=== PATIENT | male | born 1985 | race Two or more races ===

== ENCOUNTER 2020-07-03 11:19 | Emergency (ER) | payer MEDICAID ==
[~2020-07-03] VITALS: Ht 170.2 cm; Wt 74.8 kg
[2020-07-03 11:19] VITALS: BP 129/74
[2020-07-03] MEDS ORDERED: Lidocaine 1% Plain 30 ml INJ ONE ×2 (11:35→11:45)
--- NOTE | 2020-07-03 11:56 | Emergency Room Report ---
History of Present Illness General Chief Complaint: Upper Extremity Injury Source: Patient Present Illness HPI Disclaimer: Please note that this report is being documented using [employer] technology. This can lead to erroneous entry secondary to incorrect interpretation by the dictating instrument. HPI: 34-year-old male no past medical history presents with injury to the right hand. He was working when a large object fell on his right hand. Causing a laceration over the base of the thumb. Reports pain but full range of motion, sensation intact throughout the hand. Presented by EMS. 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 Patient History Reviewed Nursing Documentation: PMH: Agreed; PSxH: Agreed Nursing Documentation-PMH Past Medical History: No Stated History Review of Systems All Other Systems: negative except mentioned in HPI Physical Exam Vital Signs Date Time Temp Pulse Resp B/P (MAP) Pulse Ox O2 Delivery O2 Flow Rate FiO2 07/03/20 11:14 98.8 77 18 129/74 (92) 98 Room Air Sp02 EP Interpretation: reviewed, normal General Appearance: well appearing, no apparent distress Head: normocephalic, atraumatic Eyes: bilateral eye PERRL, bilateral eye EOMI ENT: hearing grossly normal, moist mucus membranes Neck: full range of motion, supple Respiratory: lungs clear, normal breath sounds, no rhonchi, no respiratory distress, no retraction, no wheezing Cardiovascular #1: normal peripheral pulses, regular rate, rhythm, no murmur Gastrointestinal: non tender, soft, non-distended, no guarding Musculoskeletal: other - And mildly tender to palpation, full range of motion sensation intact throughout 2 cm laceration noted on the dorsal aspect the base of the thumb. Neurologic: alert, oriented x3, no focal defects Skin: normal color, warm/dry Procedures Laceration/Wound Repair Laceration/Wound Repair : Consent: Verbal Wound Location: upper extremity Wound's Depth, Shape: superficial Wound Explored: no foreign body removed Irrigated w/ Saline (ccs): 200 Anesthesia: 1% Lidocaine Wound Debrided: None Suture Size/Type: 4:0 Sterile Dressing Applied?: Yes Splint Applied?: Yes Patient Tolerated: Well Complications: None Medical Decision Making Diagnostic Impression: Primary Impression: Contusion of right hand Additional Impression: Laceration of right hand ER Course MDM: Differential diagnosis included but not limited to contusion, laceration, less likely fracture or dislocation. Clinical course-laceration was repaired by me. X-ray completed I did not visualize any acute fracture or dislocation. Patient placed in a splint. Dressing applied. Discharged with prophylactic antibiotic, wound care instructions and return in 1 week for suture removal. Patient currently does not have a PCP, he was provided [facility] referrals. Strict return precautions given Other X-Ray Diagnostic Results Other X-Ray Diagnostic Results : # of Views/Limited Vs Complete: 3 View Indication: Pain EP Interpretation: Yes Interpretation: no dislocation, no fractures Impression: No acute disease Electronically Signed by: Isaiah Pond MD Last Vital Signs Date Time Temp Pulse Resp B/P (MAP) Pulse Ox O2 Delivery O2 Flow Rate FiO2 07/03/20 11:19 98.8 77 18 129/74 98 Room Air Status: improved Disposition: HOME, SELF-CARE Condition: Stable Scripts Ibuprofen* (MOTRIN*) 600 Mg Tablet 600 MG ORAL Q6H PRN for For Pain, #30 TAB 0 Refills Prov: Isaiah Pond M.D. 07/03/20 Cephalexin* (KEFLEX*) 500 Mg Tablet 500 MG ORAL EVERY 8 HOURS, #20 CAP Prov: Isaiah Pond M.D. 07/03/20 Bacitracin (BACITRACIN*) 1 Each Packet 1 PACKET TOPIC BID, #30 PACKET 0 Refills Prov: Isaiah Pond M.D. 07/03/20 Isaiah Pond M.D. Jul 03, 2020 11:56
[2020-07-03] MEDS ORDERED: IBUPROFEN600 M1 ORAL (12:13)
[2020-07-03] MEDS ORDERED: BACITRACIN1 EACH TOPIC (12:13)
[2020-07-03] MEDS ORDERED: CEPHALEXIN500 M1 ORAL (12:13)
[2020-07-03] MEDS ORDERED: Bacitracin Oint UD TOPIC ONE (12:15)
[2020-07-03 12:19] VITALS: BP 125/72
--- NOTE | 2020-07-03 17:17 | Diagnostic Imaging Report ---
Indication: Right hand pain Technique: 3 views right hand Comparison: none Findings: No acute fractures. No dislocations. Joint spaces are preserved. Impression: Negative This agrees with the preliminary interpretation provided by the emergency room physician
== END 2020-07-03 12:19 | disposition home or self-care (01) ==
LOC: EDBD 11:19 → EMR 11:30
DX: S61.411A Laceration without foreign body of right hand, initial encounter (principal); W22.8XXA Striking against or struck by other objects, initial encounter; Y92.9 Unspecified place or not applicable
CPT/HCPCS: 12001; 73130; J2001; Z7502; 99283

== ENCOUNTER 2020-07-11 14:47 | Emergency (ER) | payer MEDICAID ==
[~2020-07-11] VITALS: Ht 177.8 cm; Wt 87.1 kg
[~2020-07-11 14:47] MED LIST: BACITRACIN1 EACH TOPIC; CEPHALEXIN500 M1 ORAL; IBUPROFEN600 M1 ORAL
[2020-07-11 14:59] VITALS: BP 129/88
--- NOTE | 2020-07-11 15:06 | Emergency Room Report ---
History of Present Illness General Chief Complaint: Wound Recheck/Suture Removal Source: Patient Present Illness HPI 34-year-old male with no no signal past medical history here requesting suture removal that was placed in [facility] 8 days ago on right hand hyperthenar area. Patient is wearing a Velcro splint on since. Has range of motion at the site, denies any tingling and numbness. Is neurovascularly intact and has full strength. 5 sutures are placed in and that the wound appears to be healed without any complication. Denies any new injury. Has finished taking antibiotics. Has an antibiotic ointment at home. Allergies: Coded Allergies: No Known Allergies (Unverified , 07/03/20) COVID-19 Screening Contact w/high risk pt: No Experienced COVID-19 symptoms?: No COVID-19 Testing performed RAIL BONDER: No Patient History Past Medical History: see triage record Past Surgical History: none Pertinent Family History: none Immunizations: UTD Reviewed Nursing Documentation: PMH: Agreed; PSxH: Agreed Nursing Documentation-PMH Past Medical History: No Stated History Review of Systems All Other Systems: negative except mentioned in HPI Physical Exam Vital Signs Date Time Temp Pulse Resp B/P (MAP) Pulse Ox O2 Delivery O2 Flow Rate FiO2 07/11/20 14:50 98.4 76 16 129/88 (102) 99 Room Air Sp02 EP Interpretation: reviewed, normal General Appearance: normal inspection, well appearing Head: normocephalic, atraumatic Eyes: bilateral eye normal inspection, bilateral eye PERRL ENT: hearing grossly normal, normal pharynx, no angioedema, normal voice Neck: full range of motion, supple/symm/no masses Respiratory: chest non-tender, lungs clear, normal breath sounds, no rhonchi, no wheezing, speaking full sentences Cardiovascular #1: regular rate, rhythm, no edema, no murmur Cardiovascular #2: 2+ radial (R), 2+ radial (L) Gastrointestinal: soft Rectal: deferred Genitourinary: no CVA tenderness Musculoskeletal: back normal Neurologic: alert, motor strength/tone normal, oriented x3, sensory intact, responsive, speech normal Psychiatric: judgement/insight normal, memory normal, mood/affect normal, no suicidal/homicidal ideation Skin: no rash, other - Sutures intact right thenar Lymphatic: no adenopathy Procedures Additional Procedure Procedure Narrative right thenar 6 sutures removed, w/o complications Medical Decision Making PA Attestation All my diagnosis and treatment plans were reviewed ad discussed with my supervising physician Dr. Garcia Diagnostic Impression: Primary Impression: Encounter for removal of sutures ER Course 34-year-old male with no no signal past medical history here requesting suture removal that was placed in [place] [facility] 8 days ago on right hand hyperthenar area. Patient is wearing a Velcro splint on since. Has range of motion at the site, denies any tingling and numbness. Is neurovascularly intact and has full strength. 5 sutures are placed in and that the wound appears to be healed without any complication. Denies any new injury. Has finished taking antibiotics. Has an antibiotic ointment at home. Ddx considered but are not limited to : Superficial laceration, deep laceration, tendon involvement with laceration, laceration with foreign body Vital signs: are WNL, pt. is afebrile H&PE are most consistent with: Suture removal ORDERS: None ED INTERVENTIONS: Sutures were removed without complication, DISCHARGE: At this time pt. is stable for d/c to home. Will provide printed patient care instructions, and any necessary prescriptions. Care plan and follow up instructions have been discussed with the patient prior to discharge. Patient to follow-up with primary doctor, keep applying antibiotic ointment, Steri-Strips were applied, worsening symptoms return to the emergency room Last Vital Signs Date Time Temp Pulse Resp B/P (MAP) Pulse Ox O2 Delivery O2 Flow Rate FiO2 07/11/20 14:59 98.4 16 129/88 99 Room Air 07/11/20 14:50 76 Disposition: HOME, SELF-CARE Condition: Stable Patient Instructions: Wound Check Rocco Fuller Jul 11, 2020 15:06
[2020-07-11 15:20] VITALS: BP 129/88
== END 2020-07-11 16:00 | disposition home or self-care (01) ==
LOC: EMR 15:43
DX: Z48.02 Encounter for removal of sutures (principal)
CPT/HCPCS: 99281